=== PATIENT | male | born 1995 ===

== ENCOUNTER 2017-10-28 19:53 | Emergency (ER) | payer OTHER ==
[2017-10-28 19:58] VITALS: BP 122/49; RESP 18; TEMP 98.7
[2017-10-28 20:15] VITALS: PULSE 61; O2SAT 99
[2017-10-28] MEDS ORDERED: Albuterol 0.083% Inhal Sol (2.5 mg/3 mL) UD IH STA (20:33)
[2017-10-28] MEDS ORDERED: DiphenhydrAMINE 50 mg/ml Inj IVP STA (20:33)
[2017-10-28] MEDS ORDERED: Albuterol 0.083% Inhal Sol (2.5 mg/3 mL) UD ONE (20:36)
[2017-10-28] MEDS ORDERED: DiphenhydrAMINE 50 mg/ml Inj ONE (20:36)
--- NOTE | 2017-10-28 20:40 | ED PDOC ---
HPI: Allergic Reaction Time Seen by Provider: 10/28/17 20:15 Chief Complaint (Nursing): Allergic Reaction Chief Complaint (Provider): allergic reaction History Per: Patient History/Exam Limitations: no limitations Onset/Duration Of Symptoms: Hrs ( 6pm) Current Symptoms Are (Timing): Still Present Possible Cause: Food (Peanut sauce in dumpling) Associated Symptoms: Skin Rash, Swelling (lips), Itching Home/EMS Treatment: Benadryl Additional Complaint(s): Sudden onset lip swelling 10 seconds after eating dumpling at a [employer] restaurant. He attempted to wash out feeling in his mouth with water and took benadryl 25mg. Thought he felt better however he then started to get bumps all over body and throat itching and coughing. No vomiting but feels nauseous. Has an epipen but it is and has been administered epinephrine in the past. PMD None. Past Medical History Reviewed: Historical Data, Nursing Documentation, Vital Signs Vital Signs: Last Vital Signs Temp 98.7 F 10/28/17 19:55 Pulse 61 10/28/17 20:15 Resp 18 10/28/17 20:15 BP 122/49 L 10/28/17 19:55 Pulse Ox 99 10/28/17 20:15 - Medical History PMH: No Chronic Diseases - Surgical History Other surgeries: Open heart surgery for thymoma - Family History Family History: States: No Known Family Hx - Social History Current smoker - smoking cessation education provided: Yes - Home Medications Home Medications: Ambulatory Orders Medication Instructions Recorded DiphenhydrAMINE [Benadryl] 50 mg PO Q6 PRN #30 cap 10/28/17 Epinephrine HCl [Epipen 0.3 mg IM ONCE PRN #0.3 ml 10/28/17 Auto-Injector] Famotidine [Pepcid] 40 mg PO DAILY PRN #7 tab 10/28/17 Prednisone 50 mg PO DAILY #2 tablet 10/28/17 - Allergies Allergies/Adverse Reactions: Allergies Allergy/AdvReac Type Severity Reaction Status Date / Time chocolate flavor Allergy RASH Verified 10/28/17 19:55 peanut Allergy RASH Verified 10/28/17 19:55 Review of Systems ROS Statement: Except As Marked, All Systems Reviewed And Found Negative (and as per HPI) Constitutional: Negative for: Fever, Chills ENT: Positive for: Other (Throat itching, lip swelling) Cardiovascular: Positive for: Light Headedness Respiratory: Positive for: Cough, Wheezing Skin: Positive for: Rash Physical Exam - Reviewed Nursing Documentation Reviewed: Yes Vital Signs Reviewed: Yes - Physical Exam Appears: Positive for: Uncomfortable, In Acute Distress Head Exam: Positive for: ATRAUMATIC, NORMOCEPHALIC Skin: Positive for: Rash (diffuse papular rash) Eye Exam: Positive for: EOMI, PERRL ENT: Positive for: Pharynx Is (clear with no uvula edema), Pharyngeal Erythema, Other (+left sided lip swelling). Negative for: Nasal Congestion, Tonsillar Exudate, Tonsillar Swelling Neck: Positive for: Painless ROM, Supple Cardiovascular/Chest: Positive for: Tachycardia. Negative for: Murmur Respiratory: Positive for: Wheezing (diffusely), Respiratory Distress (mild) Gastrointestinal/Abdominal: Positive for: Soft. Negative for: Tenderness Back: Positive for: Normal Inspection. Negative for: Decreased ROM Extremity: Positive for: Normal ROM. Negative for: Deformity Lymphatic: Negative for: Adenopathy Neurologic/Psych: Positive for: Alert. Negative for: Motor/Sensory Deficits - ECG O2 Sat by Pulse Oximetry: 99 Pulse Ox Interpretation: Normal - Progress ED Course And Treament: Respiratory distress worsening on arrival. IV allergy medications and albuterol given and on reevaluation pt improving after 10 minutes. Re-evaluation Time: 21:30 Condition: Improved - Critical Care Total Time (In Min): 30 Documented Critical Care: Time excludes all time spent performint seperately billable procedures Disposition - Clinical Impression Clinical Impression: Allergic reaction - Disposition Referrals: [facility] [Outside] (FOLLOW UP WITH YOUR DOCTOR OR [facility] IN 48 HOURS FOR REEVALUATOIN) Disposition: Routine/Home Disposition Time: 22:08 Condition: IMPROVED Prescriptions: DiphenhydrAMINE [Benadryl] 50 mg PO Q6 PRN #30 cap PRN Reason: Allergy Symptoms Epinephrine HCl [Epipen Auto-Injector] 0.3 mg IM ONCE PRN #0.3 ml PRN Reason: Anaphylaxis Famotidine [Pepcid] 40 mg PO DAILY PRN #7 tab PRN Reason: reflux Prednisone 50 mg PO DAILY #2 tablet Instructions: Food Allergy (ED) Forms: [employer] ([place]ian), [facility] ED School/Work Excuse
== END 2017-10-28 22:21 | disposition home or self-care (01) ==
LOC: H.ER 19:53
DX: T78.40XA Allergy, unspecified, initial encounter (principal)
CPT/HCPCS: 96374; 96375; 99282; J1200; J2930